=== PATIENT | female | born 1930 | race Caucasian/White ===

== ENCOUNTER 2016-07-15 21:02 | Inpatient (IN) ==
[2016-07-15] MEDS ORDERED: Ondansetron 4 MG/2 ML VIAL IVP ONE (21:15)
[2016-07-15] MEDS ORDERED: 0.9 % Sodium Chloride 1,000 ML IVC ONE (21:15)
[2016-07-15] MEDS ORDERED: *HR* HYDROmorphone 2 MG/ML SYRINGE IV ONE (21:19)
--- NOTE | 2016-07-15 21:22 | Emergency Department Note ---
Disposition Clinical Impression: Closed right femoral fracture Qualifiers: Encounter type: initial encounter Femur location: shaft Fracture morphology: comminuted Fracture alignment: nondisplaced Qualified Code(s): S72.354A - Nondisplaced comminuted fracture of shaft of right femur, initial encounter for closed fracture Disposition: Admitted As Inpatient Condition: Serious Forms: ED Satisfaction Letter Fall HPI - General Chief Complaint: ED Fall Stated Complaint: fall Nursing Notes Reviewed: Yes Vital Signs Reviewed: Yes - History of Present Illness HPI Narrative: Patient's 86-year-old female who complains of fall times now and half ago. Patient is not on anticoagulants. Patient has history of bilateral hip replacement 10 years ago, C2 fracture 2 years ago, bilateral knee replacements. Patient history of dementia. Family says the patient tried to sit down in a chair and missed average and fell onto her right hip. Patient was lifted and place to chair I family member. EMS was called and they brought patient in the emergency department. - Related Data Home Medications Medication Instructions Recorded Confirmed Aspirin [Adult Low Dose Aspirin EC] 81 mg PO DAILY 08/12/15 08/12/15 Cholecalciferol (Vitamin D3) 4,000 unit PO DAILY 08/12/15 08/12/15 [Vitamin D] Donepezil [Aricept] 10 mg PO HS 08/12/15 08/12/15 LevETIRAcetam [Keppra] 500 mg PO BID 08/12/15 08/12/15 Lisinopril [Zestril] 20 mg PO DAILY 08/12/15 08/12/15 Memantine [Namenda] 10 mg PO BID 08/12/15 08/12/15 Metoprolol [Lopressor] 25 mg PO BID 08/12/15 08/12/15 Simvastatin [Zocor] 20 mg PO DAILY 08/12/15 08/12/15 Venlafaxine [Effexor] 75 mg PO BID 08/12/15 08/12/15 Allergies Allergy/AdvReac Type Severity Reaction Status Date / Time piroxicam [From Feldene] AdvReac Rash Verified 08/12/15 11:17 povidone-iodine AdvReac Rash Verified 08/12/15 10:49 [From Betadine] soap [From Betadine] AdvReac Rash Verified 08/12/15 10:49 Limitations: ROS unobtainable due to patients medical condition Fall PMH - Past Medical History Medical history: Reports: dementia Psychiatric history: Reports: no psych history - Social History Smoking Status: Never smoker Alcohol use: Reports: none Drug use: Reports: none Physical Exam -General Appearance: Patient is a 86-year-old female who does not answer questions but she nods her head yes to where she is having pain. - Head Head exam: atraumatic, normocephalic, normal inspection - Eye Eye exam: Present: normal appearance, PERRL, EOMI, negative for scleral icterus negative for conjunctival pallor - ENT ENT exam: normal exam, normal oropharynx, mucous membranes moist - Neck Neck exam: Present: normal inspection, full ROM, trachea midline, negative JVD - Chest Chest inspection: Present: Patient has bilateral equal rise and fall of chest wall. Non-tender to palpation. - Respiratory Respiratory exam: Clear to auscultation bilaterally without wheezes rales or rhonchi Cardiovascular Cardiovascular exam: Present: regular rate, normal rhythm, normal heart sounds, without murmurs rubs or gallops. - Abdominal Exam Abdominal exam: Present: soft, nondistended, Non-Tender light and deep palpation in all quadrants. Bowel sounds normoactive throughout all 4 quadrants. Negative for hyper or hyperresonance. - Extremities Exam Extremities exam: Right lower extremity bent at the knee and externally rotated. Patient has grimacing to palpation at the lateral right hip. Distal pulses equal and bilateral. - Back Exam Back exam: Currently unable to assess secondary to patient's condition Psychiatric Psychiatric exam: Present: normal affect, normal mood - Skin Skin exam: Present: warm, dry, intact, normal color Course Course Narrative: Pt was seen and examined. Preop workup ordered for suspected hip fracture on the right lower extremity. IV normal saline and 1 mg Dilaudid ordered - Reevaluation(s) Reevaluation #1: Patient's back from x-ray. - Consultations Consultation #1: Dr. Barajas was consult at 2207 hrs. He states to admit patient to medicine and he will see patient in the morning. Time: 22:07 Consultation #2: Dr. Siu has accepted for admission Time: 22:25 Fall - [facility] Narrative Medical decision making narrative: Mrs. Donna Campbell is an 86-year-old female who suffered a ground-level mechanical fall otitis it back into a chair. Patient has history of bilateral replacements by Dr. Barajas. Patient has bilateral knee replacements as well. He has history of A. fib but is not on anticoagulants therapy secondary to fall risk. Patient has a history of dementia as well. X-ray of hip shows closed fracture mid shaft femur short neck comminuted. Dr. Gonzalez was consult and requests patient be admitted to the hospital to medicine. He states he was see patient in morning. Patient's family has been updated progress and accepts treatment and plan. Dr. Siu has accepted for admission - Radiology Data Radiology results reviewed: Yes I reviewed the patient's radiology results.
--- NOTE | 2016-07-15 21:30 | Emergency Department Note ---
START Narrative - START START: I examined this patient and my medical decision-making was reviewed with the HEEL BUILDER/PA/Advanced Practice Nurse/Resident Physician. I agree with the documented findings, disposition and treatment plan as described except to the extent set forth below. ED attending note: Patient seen with emergency medicine resident Dr. Piedra. We independently evaluated the patient. We independently had [id number] contact with the patient. Please see a copy of his note for details of the history and physical, evaluation, management and disposition of this emergency Department patient. Briefly: A 86-year-old history of A. fib but not on blood thinners due to frequent falls spell while getting into a chair at home her family helped her onto the bed. There was no loss of consciousness no open wounds. Neurologically at baseline. Labs and imaging are pending. Disposition pending. Patient stable.
[2016-07-15 22:39] LABS: Basophils % 0.2 %; Eosinophils % 0.3 %; Hematocrit 39.9 % (35.3-44.9); Hemoglobin 13.3 g/dL (11.5-15.4); Immature Granulocytes % 0.5 % (0-4); Lymphocytes % 8.3 %; Mean Corpuscular HGB Conc 33.3 g/dL (31.6-35.5); Mean Corpuscular Volume 87.1 fL (83.0-100.0); Mean Platelet Volume 9.6 fL (9.4-12.4); Monocytes # 0.3 K/mcL (0.0-1.3); Monocytes % 2.2 %; Neutrophils # 10.6 K/mcL (1.6-8.9); Platelet Count 295 K/mcL (140-400); Red Blood Count 4.58 M/mcL (3.82-4.97); Red Cell Distribution Width 13.6 % (11.5-14.5); Segmented Neutrophils % 88.5 %
[2016-07-15 22:51] LABS: BUN/Creatinine Ratio 21 (6-26); Blood Urea Nitrogen 19 mg/dL (7-20); Calcium 9.9 mg/dL (8.6-10.8); Carbon Dioxide 19 mEq/L (19-29); Chloride 108 mEq/L (98-109); Glucose 199 mg/dL (70-99); Osmolality,Calculated 296 (280-300); Potassium 4.1 mEq/L (3.5-4.5); Sodium 139 mEq/L (136-145); eGFR For African Americans > 60 (> 60); eGFR For Non-African Americans 59 (> 60)
[2016-07-15] MEDS ORDERED: Ondansetron 4 MG/2 ML VIAL IVP PRN (23:45)
[2016-07-15] MEDS ORDERED: 0.9 % Sodium Chloride 1,000 ML IVC SCH (23:45)
[2016-07-15] MEDS ORDERED: *HR* HYDROcodone/Acet 5/325 mg TABLET PO PRN (23:45)
[2016-07-15] MEDS ORDERED: Naloxone 0.4 MG/ML INJ IVP PRN (23:45)
--- NOTE | 2016-07-16 00:02 | Internal Med History&Physical ---
<Lisset Baca M - Last Filed: 07/15/16 23:56> Date of Encounter: 07/15/16 Time of Encounter: 23:56 Assessment and Plan (1) Closed right femoral fracture Current visit: Yes Status: Acute Patient fell at home. XRay revealed right communuted, impacted and shortened mid shaft femur fracture below hardware of hip replacement. Right leg is internally rotated and right thigh is significantly swollen IV dilaudid for pain control Narcan ordered PRN for respiratory depression Neurovascular checks Q2hrs to monitor for compartment syndrome Pre-op testing: CXR showed no acute abnormality. EKG with no changes from previous. Echocardiogram ordered for the morning. NPO after midnight for possible surgery. type and cross ordered. Qualifiers: Encounter type: initial encounter Femur location: shaft Fracture morphology: comminuted Fracture alignment: nondisplaced Qualified Code(s): S72.354A - Nondisplaced comminuted fracture of shaft of right femur, initial encounter for closed fracture (2) Hypertension Current visit: Yes Status: Acute Continue home doses of metoprolol and lisinopril. Will get pain under control, and reassess blood pressure and need for PRN. Qualifiers: Hypertension type: essential hypertension Qualified Code(s): I10 - Essential (primary) hypertension (3) Dementia Current visit: Yes Status: Acute Continue home doses of Memantine and aricept. Qualifiers: Dementia type: unspecified type Dementia behavioral disturbance: without behavioral disturbance Qualified Code(s): F03.90 - Unspecified dementia without behavioral disturbance (4) Seizure disorder Current visit: Yes Status: Acute Continue home dose of Keppra. (5) Atrial fibrillation Current visit: Yes Status: Acute Patient rate controlled with metoprolol. On asprin 325mg daily, but no anti- coagulation due to fall risk. Continue metoprolol. Qualifiers: Atrial fibrillation type: paroxysmal Qualified Code(s): I48.0 - Paroxysmal atrial fibrillation (6) History of DE (myocardial infarction) Current visit: Yes Status: Acute EKG with no changes. Will get echocardiogram in the morning for pre-op clearance. (7) DVT prophylaxis Current visit: Yes Status: Acute anit-embolic stockings. hold heparin tonight due to significant swelling in right thigh. start heparin 5,000u SQ BID after surgery. Internal Medicine - H&P: HPI Chief complaint: fall Admitted From: Emergency Dept Plans for Post Hospital Care: Transfer [facility] Facility History of present illness: Ms. Campbell is a 86 year old female with dementia, seizure disorder, Hypertension, hyperlipidemia, CVA, DE, Afib who was brought to the ED today after a fall at home. She has significant dementia and all information was gathered from family. Patient reportedly was going to sit down and missed the chair. The fall was witnessed and she did not hit her head. She is unable to provide a review of symptoms due to her baseline mental status. Xray obtained in the ED revealed a right comminuted, impacted and shortened mid shaft femur fracture below the level of the hip replacement hardware. CXR showed no acute abnormality. EKG showed no significant changes from previous. On exam, the patient is awake, and oriented x 0, which is her baseline per the family. Her right leg is internally rotated and the right thigh is significantly swollen. Heart has irregular rhythm, lungs are clear bilaterally. Past Med Surg Social Fam HX - Past Medical History Source: obtained from family Medical history: atrial fibrillation, CVA, dementia, hyperlipidemia, hypertension, myocardial infarction, seizures Psychiatric history: no psych history - Past Surgical History Surgical History: herniorrhaphy, hip replacement (bilateral), knee replacement ( bilateral) - Social History Smoking Status: Never smoker Smokeless Tobacco Status: No Alcohol use: none Drug use: none - Family History Mother Hx Family Neuromuscular Disorders: Yes (CVA) Internal Medicine - H&P: Meds Aspirin [Adult Low Dose Aspirin EC] 325 mg PO DAILY 08/12/15 [History] Cholecalciferol (Vitamin D3) [Vitamin D] 4,000 unit PO DAILY 08/12/15 [History] Donepezil [Aricept] 10 mg PO HS 08/12/15 [History] LevETIRAcetam [Keppra] 500 mg PO BID 08/12/15 [History] Lisinopril [Zestril] 20 mg PO DAILY 08/12/15 [History] Memantine [Namenda] 10 mg PO BID 08/12/15 [History] Metoprolol [Lopressor] 50 mg PO BID 08/12/15 [History] Simvastatin [Zocor] 20 mg PO DAILY 08/12/15 [History] Venlafaxine [Effexor] 75 mg PO DAILY 08/12/15 [History] Allergies piroxicam [From Feldene] Adverse Reaction (Verified 08/12/15 11:17) Rash povidone-iodine [From Betadine] Adverse Reaction (Verified 08/12/15 10:49) Rash soap [From Betadine] Adverse Reaction (Verified 08/12/15 10:49) Rash ROS unobtainable: due to mental status All Systems PM: A 10-system review of systems was performed and is negative for pertinent findings except as documented above in the HPI. - Constitutional Vitals: Temp Pulse Resp BP Pulse Ox 97.5 F L 62 14 173/115 96 07/15/16 22:49 07/15/16 21:22 07/15/16 22:49 07/15/16 22:49 07/15/16 21:22 General appearance: Present: A&O X 0, no acute distress - Head Head exam: Present: atraumatic, normocephalic - Eye Eye exam: Present: PERRL, conjuntiva pink, sclera anicteric Pupils: Present: PERRL - Neck Neck exam general surgery: Present: supple, trachea midline. Absent: lymphadenopathy - Respiratory Respiratory exam: Present: CTAB. Absent: accessory muscle use, rales, rhonchi, wheezes - Cardiovascular Cardiovascular exam: Present: irregular rhythm, +S1, +S2. Absent: diastolic murmur, gallop, rubs, systolic murmur - GI/Abdominal GI/Abdominal exam: Present: normal bowel sounds, soft, no peritoneal signs. Absent: distended, tenderness - Extremities Exam Extremities exam: Present: warm, radial pulses palpable and symetrical. Absent : calf tenderness, cyanotic, pedal edema Additional comments: Right leg internally rotated and thigh is significantly swollen - Neurological Exam Neurological exam: Present: alert, speech deficit - Expanded Neurological Exam Neurological exam expanded: Present: total aphasia Cranial Nerves: EOM's intact PM: Normal Coma Scale Eye Opening: Spontaneous - Skin Skin exam: Present: dry, intact Internal Med - H&P Results - Labs CBC & Chem 7: 07/15/16 22:16 07/15/16 22:16 Labs: All Lab Results (24 Hours) 07/15/16 07/15/16 07/15/16 Range/Units 21:05 22:16 22:16 WBC 11.9 H (4.3-11.1) K/mcL RBC 4.58 (3.82-4.97) M/mcL Hgb 13.3 (11.5-15.4) g/dL Hct 39.9 (35.3-44.9) % MCV 87.1 (83.0-100.0) fL MCH 29.0 (28.0-33.3) pg MCHC 33.3 (31.6-35.5) g/dL RDW 13.6 (11.5-14.5) % Plt Count 295 (140-400) K/mcL MPV 9.6 (9.4-12.4) fL Immature Gran % 0.5 (0-4) % Seg Neutrophils % 88.5 % Lymphocytes % 8.3 % Monocytes % 2.2 % Eosinophils % 0.3 % Basophils % 0.2 % Neutrophils # 10.6 H (1.6-8.9) K/mcL Lymphocytes # 1.0 (0.6-4.6) K/mcL Monocytes # 0.3 (0.0-1.3) K/mcL Eosinophils # 0.0 (0.0-0.6) K/mcL Basophils # 0.0 (0.0-0.2) K/mcL Sodium 139 (136-145) mEq/L Potassium 4.1 (3.5-4.5) mEq/L Chloride 108 (98-109) mEq/L Carbon Dioxide 19 (19-29) mEq/L BUN 19 (7-20) mg/dL Creatinine 0.90 (0.57-1.11) mg/dL Est GFR ( Amer) > 60 (> 60) Est GFR (Non-Af Amer) 59 L (> 60) BUN/Creatinine Ratio 21 (6-26) Glucose 199 H (70-99) mg/dL POC Glucose 162 H (58-89) Calculated Osmolality 296 (280-300) Calcium 9.9 (8.6-10.8) mg/dL <Daren Siu - Last Filed: 07/16/16 04:43> Date of Encounter: 07/15/16 Internal Medicine - H&P: HPI History of present illness: Ms. Campbell is a 86 year old female All Systems PM: A 10-system review of systems was performed and is negative for pertinent findings except as documented above in the HPI. - Constitutional Vitals: Temp Pulse Resp BP Pulse Ox 97.1 F L 61 16 143/82 97 07/16/16 03:53 07/16/16 03:53 07/16/16 03:53 07/16/16 03:53 07/16/16 03:53 Internal Med - H&P Results - Labs CBC & Chem 7: 07/16/16 01:21 07/16/16 01:21 Labs: Short CBC 07/16/16 Range/Units 01:21 WBC 12.9 H (4.3-11.1) K/mcL Hgb 11.9 (11.5-15.4) g/dL Hct 35.9 (35.3-44.9) % Plt Count 300 (140-400) K/mcL Neutrophils # 11.5 H (1.6-8.9) K/mcL BMP 07/16/16 01:21 Sodium 140 Potassium 4.2 Chloride 110 H Carbon Dioxide 17 L BUN 19 Creatinine 0.80 Glucose 184 H Calcium 9.3 Urine 07/16/16 Range/Units 01:00 Urine Color Yellow (Yellow) Urine Clarity Clear (Clear) Urine pH 5.5 (5.0-8.0) pH Units Ur Specific [place] >= 1.030 H (1.010-1.025) Urine Protein 30 H (Neg-Trace) mg/dL Urine Glucose (UA) Normal (Normal) mg/dL - Attending Attestation I examined this patient and my medical decision-making was reviewed with the SERVICE SPECIALIST/PA/Advanced Practice Nurse/Resident Physician. I agree with the documented findings, disposition and treatment plan as described except to the extent set forth below. I have personally evaluated the pt and discussed the details with [employer] CRAFTSMAN. 86 Y/F with dementia not able to answer questions. She had a fall and sustained a comminuted, displaced and angulated fracture of the mid to distal right femur, extending from the distal aspect of the intramedullary nail into the femoral component of the knee arthroplasty. ER Physician contacted Dr Archibald, ( orthopedics), who will evaluate the pt. O/E: Pt is non verbal, due to dementia. Not in Acute distress at the time of my evaluation. There is significant swelling at the right thigh, with limb shortening. I could not feel dorsalis pedis pulses on the right side. Pulses present by Doppler. A/P: Right femur fracture: Orthopedic consultation for ORIF. At risk of compartment syndrome. Monitor pulse / neurovascular monitoring. Type and screen . Echo.
[2016-07-16] MEDS: *HR* HYDROmorphone (PF) 1 MG/ML SYRINGE IVP PRN ×2 (00:35→06:56)
[2016-07-16] MEDS: levETIRAcetam 250 MG TABLET PO SCH ×3 (00:42→21:04)
[2016-07-16 01:34] LABS: Basophils % 0.1 %; Hematocrit 35.9 % (35.3-44.9); Hemoglobin 11.9 g/dL (11.5-15.4); Immature Granulocytes % 0.4 % (0-4); Immature Platelets 1.8 % (1.1-6.1); Lymphocytes # 0.9 K/mcL (0.6-4.6); Mean Corpuscular HGB Conc 33.1 g/dL (31.6-35.5); Mean Corpuscular Hemoglobin 29.1 pg (28.0-33.3); Mean Corpuscular Volume 87.8 fL (83.0-100.0); Mean Platelet Volume 9.4 fL (9.4-12.4); Monocytes # 0.4 K/mcL (0.0-1.3); Monocytes % 3.3 %; Neutrophils # 11.5 K/mcL (1.6-8.9); Platelet Count 300 K/mcL (140-400); Red Blood Count 4.09 M/mcL (3.82-4.97); Red Cell Distribution Width 13.7 % (11.5-14.5); Segmented Neutrophils % 89.2 %
[2016-07-16 01:35] LABS: Bilirubin,Urine Negative (Negative); Blood,Urine Small (Negative); Clarity,Urine Clear (Clear); Color,Urine Yellow (Yellow); Glucose,Urine (UA) Normal (Normal); Ketones,Urine Negative (Negative); Leukocyte Esterase,Urine Trace (Negative); Nitrite,Urine Positive (Negative); PH,Urine 5.5 pH Units (5.0-8.0); Protein,Urine 30 mg/dL (Neg-Trace); Specific Gravity,Urine >= 1.030 (1.010-1.025); Urobilinogen,Urine Normal (Normal)
[2016-07-16 01:38] LABS: Bacteria,Urine Many per hpf (None-Few); Hyaline Casts,Urine None Seen per lpf (None-Few); Squamous Epithelial Cell,Urine Many per lpf (None-Few); WBC,Urine 15-30 per hpf (0-3)
[2016-07-16 01:50] LABS: BUN/Creatinine Ratio 24 (6-26); Blood Urea Nitrogen 19 mg/dL (7-20); Calcium 9.3 mg/dL (8.6-10.8); Carbon Dioxide 17 mEq/L (19-29); Chloride 110 mEq/L (98-109); Glucose 184 mg/dL (70-99); Osmolality,Calculated 297 (280-300); Potassium 4.2 mEq/L (3.5-4.5); Sodium 140 mEq/L (136-145); eGFR For African Americans > 60 (> 60); eGFR For Non-African Americans > 60 (> 60)
[2016-07-16] MEDS ORDERED: *HR* Heparin 5,000 UNIT/ML VIAL SQ SCH (07:00)
[2016-07-16] MEDS ORDERED: Dextrose Gel 15 GM PO PRN ×2 (07:59)
[2016-07-16] MEDS ORDERED: *HR* Dextrose 50 % in Water (Syg) 50 ML SYRINGE IVP PRN (07:59)
[2016-07-16] MEDS ORDERED: D5% in Water 1,000 ML IV PRN (07:59)
[2016-07-16] MEDS ORDERED: Lisinopril 20 MG TABLET PO SCH (09:00)
[2016-07-16] MEDS: Insulin LISPRO 300 UNITS/3 ML VIAL SQ SCH ×2 (12:19→17:15)
[2016-07-16] MEDS: Venlafaxine XR (24 HR) 75 MG CAP.ER.24H PO SCH (13:03)
[2016-07-16] MEDS: Cholecalciferol (D-3) 1,000 UNIT TABLET PO SCH (13:03)
[2016-07-16] MEDS: Aspirin Enteric Coated 325 MG Tablet PO SCH (13:03)
--- NOTE | 2016-07-16 13:06 | Orthopedic Consult Note ---
Date of Encounter: 07/16/16 Time of Encounter: 12:54 History of Present Illness Chief complaint: Right leg pain HPI: Ms. Campbell is a 86 year old female known to me from previous fixation of a intertrochanteric fracture of her right hip. Patient also previously has undergone a hemiarthroplasty of her left hip as well as previous bilateral total knee replacements. Patient apparently sustained an injury to her right leg in a witnessed fall at home. Patient has significant dementia and is unable to give any history. History is obtained from family. She was brought to the emergency room x-rays taken revealed a complex fracture of her right femur. She is admitted for definitive management. For complete History and physical data please refer to the completed portion of the medical record. Examination reveals a pleasant elderly white female in mild distress. Examination of right lower extremity reveals it to be externally rotated and shortened with thickening of the thigh consistent with muscle pull and shortening. X-rays reveal a complex fracture of the right femur. There is a short trochanteric femoral nail in the proximal femur. Distally there is a 3 component total knee arthroplasty. Just below the level of the nail is a complex comminuted fracture. There is extension distally to a point just above the prosthesis. Impression: Complex comminuted displaced periprosthetic fracture right femur Recommendation: I discussed the complexity of the fracture with the family. We discussed the potential treatment options including nonoperative management, possibly revising from a short nail to a long nail though this would be quite difficult. The other option would be proceeding with open reduction internal fixation utilizing a combination type plate with proximal cables and distal screws. I also discussed recommend that we place a implanted bone stimulator and possibly place bone graft matrix depending upon findings. We discussed potential risks and complications of the surgery included but not limited to bleeding infection blood clots nerve injury stiffness malunion nonunion and leg length or rotational deformities. We also discussed that this is a long process for this fracture to heal and she would not be weightbearing for a significant period of time. Patient's family understands and agree. The who has power of patent prosecution attorney has signed informed consent for the surgery. We will proceed with surgery tomorrow. In the meantime patient has just had a echocardiogram completed. Also awaiting a urine culture result as a suspect the patient has a urinary tract infection. Thank you very much for allowing me to see care for Mrs. Campbell. Sincerely, Fady Barajas,DO Past Med Surg Social Fam HX - Past Medical History Medical history: atrial fibrillation, CVA, dementia, hyperlipidemia, hypertension, myocardial infarction, seizures Psychiatric history: no psych history - Past Surgical History Surgical History: herniorrhaphy, hip replacement (bilateral), knee replacement ( bilateral) - Social History Smoking Status: Never smoker Smokeless Tobacco Status: No Alcohol use: none Drug use: none - Family History Mother Hx Family Neuromuscular Disorders: Yes (CVA) Medications and Allergies Aspirin [Adult Low Dose Aspirin EC] 325 mg PO DAILY 08/12/15 [History] Cholecalciferol (Vitamin D3) [Vitamin D] 4,000 unit PO DAILY 08/12/15 [History] Donepezil [Aricept] 10 mg PO HS 08/12/15 [History] LevETIRAcetam [Keppra] 500 mg PO BID 08/12/15 [History] Lisinopril [Zestril] 20 mg PO DAILY 08/12/15 [History] Memantine [Namenda] 10 mg PO BID 08/12/15 [History] Metoprolol [Lopressor] 50 mg PO BID 08/12/15 [History] Simvastatin [Zocor] 20 mg PO DAILY 08/12/15 [History] Venlafaxine [Effexor] 75 mg PO DAILY 08/12/15 [History] Allergies piroxicam [From Feldene] Adverse Reaction (Verified 08/12/15 11:17) Rash povidone-iodine [From Betadine] Adverse Reaction (Verified 08/12/15 10:49) Rash soap [From Betadine] Adverse Reaction (Verified 08/12/15 10:49) Rash All Systems Reviewed: A 10-system review of systems was performed and is negative for pertinent findings except as documented above in the HPI. Physical Exam - Constitutional Vitals: Temp Pulse Resp BP Pulse Ox 97.8 F 76 18 144/78 97 07/16/16 11:44 07/16/16 11:44 07/16/16 11:44 07/16/16 11:44 07/16/16 11:44 Results - Labs Result Diagrams: 07/16/16 01:21 07/16/16 01:21 Labs: Abnormal lab results WBC 12.9 K/mcL (4.3-11.1) H 07/16/16 01:21 Neutrophils # 11.5 K/mcL (1.6-8.9) H 07/16/16 01:21 Chloride 110 mEq/L (98-109) H 07/16/16 01:21 Carbon Dioxide 17 mEq/L (19-29) L 07/16/16 01:21 Glucose 184 mg/dL (70-99) H 07/16/16 01:21 POC Glucose 166 (58-89) H 07/16/16 01:56 Ur Specific [place] >= 1.030 (1.010-1.025) H 07/16/16 01:00 Urine Protein 30 mg/dL (Neg-Trace) H 07/16/16 01:00 Urine Blood Small (Negative) H 07/16/16 01:00 Urine Nitrite Positive (Negative) A 07/16/16 01:00 Ur Leukocyte Esterase Trace (Negative) H 07/16/16 01:00 Urine Microscopic RBC 5-15 per hpf (0-3) H 07/16/16 01:00 Urine Microscopic WBC 15-30 per hpf (0-3) H 07/16/16 01:00 Ur Squamous Epith Cells Many per lpf (None-Few) H 07/16/16 01:00 Urine Bacteria Many per hpf (None-Few) H 07/16/16 01:00 H & H 07/16/16 Range/Units 01:21 Hgb 11.9 (11.5-15.4) g/dL Hct 35.9 (35.3-44.9) % All other labs normal. Consult Discharge Plan - Plan Referrals: NO,PCP [Non-Partnered Physician] -
--- NOTE | 2016-07-16 15:29 | ECHO - Doppler Report ---
Echocardiogram Name: Donna Campbell Date of Study: 07/16/2016 Date: 1930 Ht: 62.0 in Medical Record#: [id number] Age: 86 Wt: 123.0 lb Gender: Female BSA: 1.55 Order #: [id number] Location: [facility] Room #: [employer] [facility] [employer] [facility] Reading Physician: Dawit Wolf MD, [facility] Oracle Fusion Developer: HARLEY GutiérrezT, [facility] Ordering Physician: Lisset Baca CNP Primary Physician: Itzel Street MD Indications: Preop Impressions: Technically sub-optimal study. Patient supine for exam. Limited echo windows. Normal left ventricular size and systolic function, LVEF 65%. Mild left ventricular diastolic dysfunction. Normal right ventricular size and function. Mildly dilated left atrium. No significant valvular dysfunction. Mild pulmonary hypertension. Estimated RVSP = 38 mmHg. Left Ventricular Wall Motion: Rest Echo Findings All wall segments showed normal motion. Findings: Study Quality * Technically sub-optimal study. Patient supine for exam. Limited echo windows. ECG Findings * Normal sinus rhythm. Left Ventricle * Normal left ventricular size and systolic function, LVEF 65%. * Normal LV wall thickness. * Mild left ventricular diastolic dysfunction. Right Ventricle * Normal right ventricular size and function. Left Atrium * Mildly dilated left atrium. Right Atrium * Normal right atrial size. Aorta * Normally sized aortic root. Pericardium * There is no pericardial effusion present. IVC * The IVC is not well evaluated. Aortic Valve * Aortic valve not well visualized. * No aortic stenosis. * Trace aortic regurgitation. Mitral Valve * Mild mitral annular calcification * No mitral stenosis. * Trace mitral regurgitation. Tricuspid Valve * Normal tricuspid valve structure. * No tricuspid stenosis. * Trace tricuspid regurgitation. * Mild pulmonary hypertension. Estimated RVSP = 38 mmHg. Pulmonic Valve * Pulmonic valve not visualized. * No pulmonic stenosis. * No pulmonic regurgitation. History Hypertension History of CAD/PTCA Myocardial Infarction Congestive Heart Failure 03/29/2014 a Previous Echo was performed. Measurements: BP: 138/ 84 2D Normal Values RVIDd: 2.00 cm IVSd: .80 cm 0.6 - 1.0 cm LVIDd: 3.30 cm 3.7 - 5.6 cm LVPWd: .70 cm 0.6 - 1.1 cm LVIDs: 2.30 cm 1.5 - 3.6 cm AO: 3.10 cm < 4.0 cm %FS: 30.30 cm >25 % LA volume: 55 Mitral Valve Peak E:.74 m/sec Peak A:.90 m/sec E/A Ratio:0.8 Tricuspid Valve TV Regurg Peak Grad: 33.00mmHg TV Regurg Peak Manohar: 2.89m/sec Updated by Dawit Wolf MD, [facility] on 07/16/2016 3:23:40 PM electronically signed on 07/16/2016 3:24:37 PM with status of Final Wall Motion Stevens: 1=Normal, 2=Hypokinesis, 3=Akinesis, 4=Dyskinesis, 5=Aneurysmal, 6=Hyperkinetic, X=Not Visualized (Blank)=Missing
--- NOTE | 2016-07-16 16:34 | Internal Med Progress Note ---
Date of Encounter: 07/16/16 Time of Encounter: 13:45 - Assessment and plan (1) Fall Current Visit: Yes Status: Acute Assessment and plan: Mechanical fall. Patient was going to sit down and missed the chair. Qualifiers: Encounter type: initial encounter Qualified Code(s): W19.XXXA - Unspecified fall, initial encounter (2) Closed right femoral fracture Current Visit: Yes Status: Acute Assessment and plan: X-ray of the right hip showed right comminuted, impacted and shortened midshaft femur fracture below hardware of hip replacement. Orthopedic service is following, plan for surgical intervention tomorrow. Continue pain control with opiates and bed rest. Qualifiers: Encounter type: initial encounter Femur location: shaft Fracture morphology: comminuted Fracture alignment: nondisplaced Qualified Code(s): S72.354A - Nondisplaced comminuted fracture of shaft of right femur, initial encounter for closed fracture (3) CAD (coronary artery disease) Current Visit: Yes Status: Acute Assessment and plan: Patient was history of [place]. EKG showed no changes. Echocardiogram was suboptimal, LVEF 65%, mild diastolic dysfunction. No symptoms. Continue aspirin, metoprolol and statin. Qualifiers: Coronary Disease-Associated Artery/Lesion type: [place] artery [place] vs. transplanted heart: [place] heart Associated angina: without angina Qualified Code(s): I25.10 - Atherosclerotic heart disease of [place] coronary artery without angina pectoris (4) Atrial fibrillation Current Visit: Yes Status: Acute Assessment and plan: Heart rate is controlled. Continue metoprolol. Not on anticoagulation due to fall risk Qualifiers: Atrial fibrillation type: paroxysmal Qualified Code(s): I48.0 - Paroxysmal atrial fibrillation (5) Hypertension Current Visit: Yes Status: Acute Assessment and plan: Controlled. Holding home dose lisinopril. Qualifiers: Hypertension type: essential hypertension Qualified Code(s): I10 - Essential (primary) hypertension (6) Dementia Current Visit: Yes Status: Acute Assessment and plan: Patient with advanced dementia. Qualifiers: Dementia type: unspecified type Dementia behavioral disturbance: without behavioral disturbance Qualified Code(s): F03.90 - Unspecified dementia without behavioral disturbance (7) Seizure disorder Current Visit: Yes Status: Acute Assessment and plan: Seizure precautions. Fall precautions. Continue home dose of Keppra. (8) Hyperglycemia Current Visit: Yes Status: Acute Assessment and plan: No history of diabetes. Could be secondary to acute inflammation from hip fracture. Start insulin sliding scale. - Subjective Interval history: Patient has advanced dementia. Her daughter is at bedside and reports the patient is unable to maintain a conversation or answer questions. - Constitutional Vitals: Temp Pulse Resp BP Pulse Ox 97.8 F 76 18 144/78 97 07/16/16 11:44 07/16/16 11:44 07/16/16 11:44 07/16/16 11:44 07/16/16 11:44 General appearance: Present: A&O X 0, pleasant, no acute distress - Eye Eye exam: Present: PERRL, sclera anicteric - Neck Neck exam general surgery: Present: supple, trachea midline. Absent: lymphadenopathy - Respiratory Respiratory exam: Present: CTAB - Cardiovascular Cardiovascular exam: Present: RRR - GI/Abdominal GI/Abdominal exam: Present: normal bowel sounds, soft. Absent: distended, tenderness - Extremities Exam Extremities exam: Absent: pedal edema - Back Exam Back exam: Absent: CVA tenderness (L), CVA tenderness (R) - Neurological Exam Neurological exam: Present: alert, oriented X3, no focal deficits. Absent: facial droop, speech deficit - Skin Skin exam: Absent: rash Internal Medicine: Result - Labs CBC & Chem 7: 07/16/16 01:21 07/16/16 01:21 Labs: Short CBC 07/16/16 Range/Units 01:21 WBC 12.9 H (4.3-11.1) K/mcL Hgb 11.9 (11.5-15.4) g/dL Hct 35.9 (35.3-44.9) % Plt Count 300 (140-400) K/mcL Neutrophils # 11.5 H (1.6-8.9) K/mcL BMP 07/16/16 01:21 Sodium 140 Potassium 4.2 Chloride 110 H Carbon Dioxide 17 L BUN 19 Creatinine 0.80 Glucose 184 H Calcium 9.3 Urine 07/16/16 Range/Units 01:00 Urine Color Yellow (Yellow) Urine Clarity Clear (Clear) Urine pH 5.5 (5.0-8.0) pH Units Ur Specific Blue >= 1.030 H (1.010-1.025) Urine Protein 30 H (Neg-Trace) mg/dL Urine Glucose (UA) Normal (Normal) mg/dL Consult Discharge Plan - Plan Referrals: NO,PCP [Non-Partnered Physician] -
[2016-07-17] MEDS: Insulin LISPRO 300 UNITS/3 ML VIAL SQ SCH ×4 (00:20→18:39)
[2016-07-17 05:03] LABS: Basophils % 0.2 %; Eosinophils % 0.2 %; Immature Granulocytes % 0.6 % (0-4); Lymphocytes # 1.8 K/mcL (0.6-4.6); Lymphocytes % 19.6 %; Mean Corpuscular HGB Conc 33.4 g/dL (31.6-35.5); Mean Corpuscular Hemoglobin 29.4 pg (28.0-33.3); Mean Corpuscular Volume 87.9 fL (83.0-100.0); Mean Platelet Volume 9.5 fL (9.4-12.4); Monocytes # 0.8 K/mcL (0.0-1.3); Monocytes % 8.6 %; Neutrophils # 6.3 K/mcL (1.6-8.9); Platelet Count 232 K/mcL (140-400); Segmented Neutrophils % 70.8 %
[2016-07-17 05:07] LABS: Hemoglobin 9.7 g/dL (11.5-15.4)
[2016-07-17 05:19] LABS: BUN/Creatinine Ratio 24 (6-26); Blood Urea Nitrogen 22 mg/dL (7-20); Calcium 9.1 mg/dL (8.6-10.8); Carbon Dioxide 19 mEq/L (19-29); Chloride 109 mEq/L (98-109); Glucose 140 mg/dL (70-99); Magnesium 1.6 mg/dL (1.6-2.6); Osmolality,Calculated 292 (280-300); Potassium 4.4 mEq/L (3.5-4.5); Sodium 138 mEq/L (136-145); eGFR For African Americans > 60 (> 60); eGFR For Non-African Americans 58 (> 60)
[2016-07-17] MEDS: *HR* HYDROmorphone (PF) 1 MG/ML SYRINGE IVP PRN (06:01)
--- NOTE | 2016-07-17 06:25 | Electrocardiograph Report ---
[facility] Test Date: 2016-07-15 Pat Name: YUMI PENA Department: 103 Room: [facility] Gender: F Manager Of [employer]: [place] : 1930 Requested By: Trisha Santana Order Number: [id number] Reading MD: Dawit Wolf MD Measurements Intervals [place] Rate: 62 P: -35 AL: 152 QRS: 14 QRSD: 94 T: -12 QT: 443 QTc: 448 Interpretive Statements SINUS RHYTHM NONSPECIFIC ST \T\ T-WAVE ABNORMALITY Electronically Signed On 07-17-16 06:24:59 EST by Dawit Wolf MD
[2016-07-17] MEDS: Aspirin Enteric Coated 325 MG Tablet PO SCH (07:45)
[2016-07-17] MEDS: Venlafaxine XR (24 HR) 75 MG CAP.ER.24H PO SCH (07:46)
[2016-07-17] MEDS: Cholecalciferol (D-3) 1,000 UNIT TABLET PO SCH (07:46)
[2016-07-17] MEDS: levETIRAcetam 250 MG TABLET PO SCH (08:24)
[2016-07-17] MEDS ORDERED: Ringers Solution, Lactated 1,000 ML IVC SCH (10:30)
--- NOTE | 2016-07-17 15:29 | Internal Med Progress Note ---
Date of Encounter: 07/17/16 Time of Encounter: 15:15 - Assessment and plan (1) Fall Current Visit: Yes Status: Acute Assessment and plan: Mechanical fall. Patient was going to sit down and missed the chair. Qualifiers: Encounter type: initial encounter Qualified Code(s): W19.XXXA - Unspecified fall, initial encounter (2) Closed right femoral fracture Current Visit: Yes Status: Acute Assessment and plan: X-ray of the right hip showed right comminuted, impacted and shortened midshaft femur fracture below hardware of hip replacement. Orthopedic service is following, plan for surgical intervention today. Continue pain control with opiates and bed rest. Qualifiers: Encounter type: initial encounter Femur location: shaft Fracture morphology: comminuted Fracture alignment: nondisplaced Qualified Code(s): S72.354A - Nondisplaced comminuted fracture of shaft of right femur, initial encounter for closed fracture (3) CAD (coronary artery disease) Current Visit: Yes Status: Acute Assessment and plan: Patient was history of [place]. EKG showed no changes. Echocardiogram was suboptimal, LVEF 65%, mild diastolic dysfunction. No symptoms. Continue aspirin, metoprolol and statin. Qualifiers: Coronary Disease-Associated Artery/Lesion type: [place] artery [place] vs. transplanted heart: [place] heart Associated angina: without angina Qualified Code(s): I25.10 - Atherosclerotic heart disease of [place] coronary artery without angina pectoris (4) Atrial fibrillation Current Visit: Yes Status: Acute Assessment and plan: Heart rate is controlled. Continue metoprolol. Not on anticoagulation due to fall risk Qualifiers: Atrial fibrillation type: paroxysmal Qualified Code(s): I48.0 - Paroxysmal atrial fibrillation (5) Hypertension Current Visit: Yes Status: Acute Assessment and plan: Controlled. Holding home dose lisinopril. Qualifiers: Hypertension type: essential hypertension Qualified Code(s): I10 - Essential (primary) hypertension (6) Dementia Current Visit: Yes Status: Acute Assessment and plan: Patient with advanced dementia. Qualifiers: Dementia type: unspecified type Dementia behavioral disturbance: without behavioral disturbance Qualified Code(s): F03.90 - Unspecified dementia without behavioral disturbance (7) Seizure disorder Current Visit: Yes Status: Acute Assessment and plan: Seizure precautions. Fall precautions. Continue home dose of Keppra. (8) Hyperglycemia Current Visit: Yes Status: Acute Assessment and plan: No history of diabetes. Could be secondary to acute inflammation from hip fracture. Patient is on insulin sliding scale but has only required 2 units in the past 24 hours. Continue to monitor. - Subjective Interval history: Patient has advanced dementia. Her 2 daughters are at bedside and they have no complaints. - Constitutional Vitals: Temp Pulse Resp BP Pulse Ox 97.7 F 70 16 174/72 95 07/17/16 15:13 07/17/16 15:13 07/17/16 15:13 07/17/16 15:13 07/17/16 15:13 General appearance: Present: A&O X 0, pleasant, no acute distress - Eye Eye exam: Present: sclera anicteric - Neck Neck exam general surgery: Present: supple, trachea midline. Absent: lymphadenopathy - Respiratory Respiratory exam: Present: CTAB - Cardiovascular Cardiovascular exam: Present: RRR - GI/Abdominal GI/Abdominal exam: Present: normal bowel sounds, soft. Absent: distended, tenderness - Extremities Exam Extremities exam: Absent: pedal edema - Neurological Exam Neurological exam: Absent: facial droop, speech deficit - Skin Additional comments: Few small bruises in arms likely secondary to age. Internal Medicine: Result - Labs CBC & Chem 7: 07/17/16 04:38 07/17/16 04:38 Labs: Short CBC 07/17/16 Range/Units 04:38 WBC 8.9 (4.3-11.1) K/mcL Hgb 9.7 L D (11.5-15.4) g/dL Hct 29.0 L (35.3-44.9) % Plt Count 232 (140-400) K/mcL Neutrophils # 6.3 (1.6-8.9) K/mcL BMP 07/17/16 04:38 Sodium 138 Potassium 4.4 Chloride 109 Carbon Dioxide 19 BUN 22 H Creatinine 0.92 Glucose 140 H Calcium 9.1 - VTE Documentation of Mechanical Device: Graduated compression elastic hosiery Consult Discharge Plan - Plan Referrals: NO,PCP [Non-Partnered Physician] -
[2016-07-17] MEDS ORDERED: ceFAZolin 2,000 MG in D5% in Water 100 ML IVPB ONE (18:00)
--- NOTE | 2016-07-17 18:12 | Anesthesia Evaluation PreOp ---
Date of Encounter: 07/17/16 Time of Encounter: 18:10 - Past History Planned Operation: ORIF Right Femur Cardiac History: HTN, Arrhythmia (AFib), Other (CAD) Pulmonary History: Denies Any Significant HX RAYON TESTER History: Seizures, Other (Dementia) Other Medical History: Denies Any Significant HX : No Alcohol Use: none Drug use: none Medications and Allergies Aspirin [Adult Low Dose Aspirin EC] 325 mg PO DAILY 08/12/15 [History] Cholecalciferol (Vitamin D3) [Vitamin D] 4,000 unit PO DAILY 08/12/15 [History] Donepezil [Aricept] 10 mg PO HS 08/12/15 [History] LevETIRAcetam [Keppra] 500 mg PO BID 08/12/15 [History] Lisinopril [Zestril] 20 mg PO DAILY 08/12/15 [History] Memantine [Namenda] 10 mg PO BID 08/12/15 [History] Metoprolol [Lopressor] 50 mg PO BID 08/12/15 [History] Simvastatin [Zocor] 20 mg PO DAILY 08/12/15 [History] Venlafaxine [Effexor] 75 mg PO DAILY 08/12/15 [History] Allergies piroxicam [From Feldene] Adverse Reaction (Verified 08/12/15 11:17) Rash povidone-iodine [From Betadine] Adverse Reaction (Verified 08/12/15 10:49) Rash soap [From Betadine] Adverse Reaction (Verified 08/12/15 10:49) Rash - Meds/Allergy Pre-op Review Medications Reviewed: Yes Allergies Reviewed: Yes Beta Blockers on Current Med List: Yes If Beta Blockers taken, Date/Time (Last Dose taken): 07/17/2016 08:30 Anesthesia Results - Labs 07/17/16 04:38 07/17/16 04:38 Echo 07/16/2016 EF - 65% Mild LV dysfunction No valvular stenosis - Imaging EKG: image reviewed (SR, Nonspecific T-wave changes) Anesthesia Exam O2 Sat O2 Sat by Pulse Oximetry 95 O2 Sat by Pulse Oximetry 95 O2 Sat by Pulse Oximetry 98 O2 Sat by Pulse Oximetry 95 O2 Sat by Pulse Oximetry 94 O2 Sat by Pulse Oximetry 96 O2 Sat by Pulse Oximetry 95 O2 Sat by Pulse Oximetry 95 Vital Signs Temp Pulse Resp BP Pulse Ox 0 F L 62 18 199/125 96 07/15/16 21:22 07/15/16 21:22 07/15/16 21:22 07/15/16 21:22 07/15/16 21:22 Vital Signs/O2 Sat, Most Current Temp Pulse Resp BP Pulse Ox 99.4 F 55 20 179/79 95 07/17/16 15:55 07/17/16 15:55 07/17/16 15:55 07/17/16 15:55 07/17/16 15:30 Height: 5'2'' Weight: 123# NPO (# of Hours): > 8 hrs Pain Scale: 0 Pain Scale Used: Numeric (1 - 10)
[2016-07-17] MEDS ORDERED: *HR* Propofol 200 MG/20 ML VIAL IVP ONE (19:38)
[2016-07-17] MEDS ORDERED: Lidocaine -MPF 2% 2 ML VIAL ONE (19:38)
[2016-07-17] MEDS ORDERED: *HR* Etomidate 40 MG/20 ML VIAL IVP ONE (19:38)
[2016-07-17] MEDS ORDERED: *HR* FentaNYL (PF) 100 MCG/2 ML VIAL ONE (19:39)
[2016-07-17] MEDS ORDERED: Dexamethasone 4 MG/ML VIAL ONE ×2 (19:40→21:29)
[2016-07-17] MEDS ORDERED: Ondansetron 4 MG/2 ML VIAL ONE ×2 (19:40→21:29)
[2016-07-17] MEDS ORDERED: Acetaminophen IV 1,000 MG/100 ML INFUS..BTL ONE (19:45)
[2016-07-17] MEDS ORDERED: *HR* HYDROmorphone (PF) 1 MG/ML SYRINGE ONE (21:09)
[2016-07-17] MEDS ORDERED: *HR* Labetalol 20 MG/4 ML SYRINGE IVP PRN (21:13)
[2016-07-17] MEDS ORDERED: *HR* Promethazine 25 MG/ML VIAL IVP PRN (21:13)
[2016-07-17] MEDS ORDERED: *HR* HYDROmorphone (PF) 1 MG/ML SYRINGE IVP PRN (21:13)
[2016-07-17] MEDS ORDERED: *HR* Magnesium Sulfate 1 GM/2 ML VIAL ONE (21:26)
[2016-07-17] MEDS ORDERED: EPHEDrine 50 MG/ML VIAL ONE (23:38)
--- NOTE | 2016-07-18 00:37 | Operative Note ---
Date of procedure: 07/18/16 Pre-op diagnosis: Displaced comminuted periprosthetic fracture right femoral shaft Post-op diagnosis: same Procedure: #1. Open reduction internal fixation of periprosthetic fracture right femur #2. Removal metallic implant right femur #3. Insertion of an implanted bone stimulator #4. Fluoroscopic guidance for ORIF right femur Implants: Similar 12 hole right distal femoral periprosthetic NCB plate with multiple screws and cables and osteogen implanted bone stimulator Complications: None Anesthesia: GETA Surgeon: Fady Barajas Estimated blood loss (cc): 400 Specimen: None Condition: stable Disposition: PACU Procedure in Detail: Gross findings: Preoperative x-rays revealed a complex comminuted periprosthetic fracture of the right femur. The patient had a trochanteric femoral nail which remained intact. The patient also had a right total knee arthroplasty. Just below the trochanteric femoral nail the patient had a fracture extending down to the level of the distal femur approximating the femoral knee prosthesis. There was the previous distal locking screw in the trochanteric femoral nail was removed with some difficulty due to its elevating the plate off the femur proximally. There was noted to be extensive fracture comminution. Intraoperative findings were as anticipated with a marked comminuted fracture. The fracture was able to be reduced and then held in place with a combination of preliminary stainless steel cerclage wires followed by a combination cable and screw fixation plate. After excellent fracture reduction and fixation was obtained with the plate screw and cable construct, an implanted bone stimulator was placed along the anteromedial aspect of the comminution segment. Procedure: Patient was taken the operating room and administered a general anesthesia. Patient was then transferred to the [facility] fracture table. The right lower extremity was placed in longitudinal traction and left lower extremity was positioned out of harm's way and the well leg sy. Intraoperative fluoroscopy was used to guide the initial reduction which is obtained with longitudinal traction and some rotation. Markedly improved alignment was obtained. This is followed by prepping and draping in normal standard fashion for surgery. Incision was created from the the knee joint line and carried proximally along the lateral side of the femur. Dissection was carried to the subcutaneous tissues down the level of the fascia dane and the iliotibial band which were then split parallel to its fibers. Marked fracture hematoma was encountered as the vastus lateralis was elevated anteriorly. Fracture clot and hematoma was evacuated and the fracture was irrigated. At this time the fracture was manually reduced in a distal to proximal manner. Multiple stainless steel cerclage wires placed, temporarily stabilizing the fracture. At this time a 12 hole right distal femoral periprosthetic plate was measured and position. It gave excellent fit distally but proximally the screw in the trochanteric femoral nail elevated the plate and therefore the decision was made to proceed with removal of the distal locking screw. At this time the distal locking screw in the trochanteric femoral nail was identified. Some bony overgrowth was removed with a osteotome. The screw was attempted to be removed with the appropriate hex head screwdriver, unfortunately the head stripped and further attempts at removing the screw with the xm1 tank driver were abandoned. At this time the screw was exposed removing some of the cortical bone around the head. This was followed by removing the screw with a vice boat fueler. The selected plate was then placed against the femur and held in place temporarily with a bone-holding clamp. Multiplane fluoroscopy was used to verify that the fracture remained well reduced and the plate was in appropriate position. The plate was then temporarily fixed initially with several screws in the plate one just below the femoral nail and several distally. This was now followed by placing the unicortical screws in the region of the nail and then placing 21.8 mm cables about the femoral shaft in the region of the previous nail. Multivitamin plan fluoroscopy was again utilized to verify excellent position of the implants proximally. At this time distally multiple cancellus type screws and several cortical screws were placed. The majority this screws were now locked with a locking cap. Bone-holding clamp was now removed. Rigid fixation was clinically apparent. Multiplane fluoroscopic views were taken verifying persistent maintenance of reduction and excellent fracture fixation position. Once this was verified and osteogen bone stimulator was placed with the created anteromedial on the comminution segment and the generator placed in the more proximal subcutaneous tissues lateral. The wound was now irrigated and closed. Fascia dane was closed with #2 Quill. Deep subcutaneous tissue was closed with #1 Quill. The immediate subtendinous tissue was closed with multiple inverted 20 and 3-0 undyed Vicryl. Skin was then approximated with stainless steel clips. Sterile dressings consisting of operative foam was applied and secured. Leg was then wrapped with Maxwell wraps from just below the knee to the groin. Patient was then transferred from the operating table to hospital bed. Patient was awakened from anesthesia and extubated. Patient was now transferred to the post anesthesia care unit in stable and satisfactory condition. All sponge and needle evidence for counts are correct. No specimens were sent for pathology.
--- NOTE | 2016-07-18 01:07 | Anesthesia Evaluation Post Op ---
Date of Encounter: 07/18/16 Time of Encounter: 01:05 - Vital Signs Vital Signs: Vital Signs/O2 Sat/Glucose, Most Current Temp Pulse Resp BP Pulse Ox 07/18/16 01:02 80 18 147/58 99 07/18/16 00:52 98.8 F 82 16 155/75 99 07/18/16 00:42 84 18 164/77 99 07/18/16 00:32 85 16 177/68 100 07/18/16 00:22 97.8 F 81 16 171/95 97 - Lungs Lungs: Clear Ascult./Percussion - Airway Airway: Non-obstructed - Cardiovascular Regular Rate - Mental Status Mental Status: Confused, Baseline Status - Pain Pain Scale: 0 Pain Scale used: Numeric (1 - 10) - Nausea Vomiting Nausea Vomiting: Not Present - Hydration Hydration: NPO, Gonzales catheter - Discharge PostOp Status: Discharge Patient to home Anes Supervising Prov Stmt: Pt seen/evaluated, VSS and pt has met criteria for discharge to home. - MD Lashonda
[2016-07-18] MEDS ORDERED: Ondansetron 4 MG/2 ML VIAL IVP PRN (01:13)
[2016-07-18] MEDS ORDERED: Ringers Solution, Lactated 1,000 ML IVC SCH (01:13)
[2016-07-18] MEDS ORDERED: Naloxone 0.4 MG/ML INJ IVP PRN (01:13)
[2016-07-18] MEDS ORDERED: Dextrose Gel 15 GM PO PRN ×2 (01:13)
[2016-07-18] MEDS ORDERED: D5% in Water 1,000 ML IV PRN (01:13)
[2016-07-18] MEDS ORDERED: *HR* Dextrose 50 % in Water (Syg) 50 ML SYRINGE IVP PRN (01:13)
[2016-07-18] MEDS ORDERED: *HR* HYDROmorphone (PF) 1 MG/ML SYRINGE IVP PRN (01:13)
[2016-07-18] MEDS: Insulin LISPRO 300 UNITS/3 ML VIAL SQ SCH ×3 (06:09→18:22)
[2016-07-18] MEDS ORDERED: *HR* Enoxaparin 30 MG/0.3 ML SYRINGE SQ SCH (07:00)
[2016-07-18] MEDS: *HR* Enoxaparin 30 MG/0.3 ML SYRINGE SQ SCH ×2 (07:32→18:20)
[2016-07-18] MEDS ORDERED: Aspirin Enteric Coated 325 MG Tablet PO SCH (09:00)
[2016-07-18] MEDS ORDERED: Venlafaxine XR (24 HR) 75 MG CAP.ER.24H PO SCH (09:00)
[2016-07-18] MEDS: levETIRAcetam 250 MG TABLET PO SCH ×2 (09:54→21:41)
--- NOTE | 2016-07-18 09:58 | Internal Med Progress Note ---
Date of Encounter: 07/18/16 Time of Encounter: 09:30 - Assessment and plan (1) Closed right femoral fracture Current Visit: Yes Status: Acute Assessment and plan: Status post open reduction and internal fixation. Continue physical therapy. Patient will most likely need placement to skilled rehabilitation. clerical office worker consulted and will work on this. Qualifiers: Encounter type: initial encounter Femur location: shaft Fracture morphology: comminuted Fracture alignment: nondisplaced Qualified Code(s): S72.354A - Nondisplaced comminuted fracture of shaft of right femur, initial encounter for closed fracture (2) Atrial fibrillation Current Visit: Yes Status: Acute Assessment and plan: Heart rate is elevated today. On metoprolol. Continue to monitor with telemetry and his heart rate does not improve, she may require intravenous medications to control her heart rate. High risk for complications Qualifiers: Atrial fibrillation type: paroxysmal Qualified Code(s): I48.0 - Paroxysmal atrial fibrillation (3) CAD (coronary artery disease) Current Visit: Yes Status: Chronic Assessment and plan: No chest pain. Continue home medications. Qualifiers: Coronary Disease-Associated Artery/Lesion type: [place] artery [place] vs. transplanted heart: [place] heart Associated angina: without angina Qualified Code(s): I25.10 - Atherosclerotic heart disease of [place] coronary artery without angina pectoris (4) DVT prophylaxis Current Visit: Yes Status: Acute Assessment and plan: On Lovenox subcutaneously. (5) Dementia Current Visit: Yes Status: Chronic Assessment and plan: Continue Aricept and Namenda Qualifiers: Dementia type: unspecified type Dementia behavioral disturbance: without behavioral disturbance Qualified Code(s): F03.90 - Unspecified dementia without behavioral disturbance (6) Fall Current Visit: Yes Status: Acute Assessment and plan: Physical therapy. Fall precautions. Qualifiers: Encounter type: initial encounter Qualified Code(s): W19.XXXA - Unspecified fall, initial encounter (7) Hyperglycemia Current Visit: Yes Status: Acute Assessment and plan: Blood sugars remain elevated. On sliding scale insulin. Will check A1c level. (8) Acute lower urinary tract infection Current Visit: Yes Status: Acute Assessment and plan: With cystitis. Urine culture growing gram-negative rods. On ceftriaxone. - Subjective Interval history: Patient with history of underlying dementia. Does not respond to questions. Appears comfortable. Just finished working with physical therapy and was able to sit on side of bed for about 4 minutes. Does not complain of pain. Underwent surgery yesterday for right femoral fracture. - Constitutional Vitals: Temp Pulse Resp BP Pulse Ox 98.8 F 103 16 118/74 99 07/18/16 06:42 07/18/16 06:42 07/18/16 06:42 07/18/16 06:42 07/18/16 06:42 General appearance: Present: A&O X 0, pleasant, no acute distress. Absent: answers questions appropriately - Respiratory Respiratory exam: Present: CTAB. Absent: accessory muscle use, rales, rhonchi, wheezes - Cardiovascular Cardiovascular exam: Present: RRR, +S1, +S2. Absent: diastolic murmur, gallop, rubs, systolic murmur - GI/Abdominal GI/Abdominal exam: Present: normal bowel sounds, soft, no peritoneal signs. Absent: distended, tenderness - Extremities Exam Extremities exam: Present: tenderness (Right leg), warm, radial pulses palpable and symetrical. Absent: calf tenderness, cyanotic, pedal edema - Neurological Exam Neurological exam: Present: alert. Absent: oriented X3, facial droop, speech deficit Internal Medicine: Result - Labs CBC & Chem 7: 07/17/16 04:38 07/17/16 04:38 - Impressions Impressions Femur X-Ray 07/17/16 20:37 IMPRESSION: Intraprocedural fluoroscopic spot images as above. See separate procedure report for more information. D/ / Markie Owusu MD / Markie Owusu MD Interpreting Provider: Markie Owusu MD Fluoroscopy 07/17/16 20:37 IMPRESSION: Intraprocedural fluoroscopic spot images as above. See separate procedure report for more information. D/ / Markie Owusu MD / Markie Owusu MD Interpreting Provider: Markie Owusu MD - VTE Documentation of Mechanical Device: Venous foot pump, device Consult Discharge Plan - Plan Referrals: NO,PCP [Non-Partnered Physician] - - Attending Attestation This document has been at least partially created by [employer] recognition technology by Dr. Liriano. Errors in grammar, wording or other phrases may exist. If errors are found after the documentation is signed, they will be addressed individually in the addendum section of this document when appropriate.
[2016-07-18] MEDS: *HR* HYDROcodone/Acet 5/325 mg TABLET PO PRN ×2 (10:04→15:14)
[2016-07-18] MEDS: Cholecalciferol (D-3) 1,000 UNIT TABLET PO SCH (10:05)
--- NOTE | 2016-07-18 16:49 | Orthopedics Progress Note ---
Date of Encounter: 07/18/16 Time of Encounter: 16:45 Subjective Principal diagnosis: Periprosthetic fracture right femur Interval history: 07/18/2016. POD #1 ORIF complex periprosthetic fracture right femur. Patient is not talkative. She does have significant history for dementia. Does not appear to be in much pain at this time. Vital signs are stable, patient is afebrile. Dressings are dry without any signs of drainage. Distal neurosensory exam appears to be grossly intact. Hemoglobin is down to 9.7. Urine is growing gram-negative rods, final ID pending. Impression: POD #1 ORIF right periprosthetic femur fracture, orthopedic status stable Recommendation: Discussed with the family and her surgery again at length. I would routinely have patient begin some limited touchdown weightbearing though the patient is not able to comprehend and comply with the limitations therefore she should not need to be strict nonweightbearing. We will maintain the compression dressing on the leg. Recheck CBC in a.m. Awaiting final urine culture results to fine-tune antibiotics. Orthopedic status is stable for discharge to [facility] facility when appropriate per medical service. Objective Vital signs: Vital Signs Temp Pulse Resp BP Pulse Ox 07/18/16 16:01 98.6 F 92 20 137/78 94 L 07/18/16 15:12 97.9 F 83 22 150/67 92 L 07/18/16 14:35 96 07/18/16 13:03 89 22 131/65 100 07/18/16 11:06 97.5 F L 89 22 131/65 100 07/18/16 06:42 98.8 F 103 16 118/74 99 07/18/16 03:03 97.7 F 85 15 137/63 100 07/18/16 02:20 97.7 F 85 16 141/73 100 07/18/16 02:00 97.9 F 84 16 144/78 100 07/18/16 01:34 97.9 F 90 17 140/83 98 07/18/16 01:02 80 18 147/58 99 07/18/16 00:52 98.8 F 82 16 155/75 99 07/18/16 00:42 84 18 164/77 99 07/18/16 00:32 85 16 177/68 100 07/18/16 00:22 97.8 F 81 16 171/95 97 Intake and Output 07/18/16 07/18/16 07/18/16 07:59 15:59 23:59 Intake Total 100 / 100 Output Total 475 / 475 Balance -475 / -475 100 / 100 Intake: IV Fluids 100 / 100 Rocephin 1,000 MG In 100 / 100 Dextrose 5% (Minibag+) 100 ML 100 ML @ 200 mls/ hr IVPB Q24H [facility] Rx#: [id number] Output: Estimated Blood Loss 400 / 400 Urine Amount (Catheter) 75 / 75 Other: Blood Glucose* 184 184 - Labs CBC & BMP: 07/17/16 04:38 07/17/16 04:38 Labs: Abnormal lab results RBC 3.30 M/mcL (3.82-4.97) L 07/17/16 04:38 Hgb 9.7 g/dL (11.5-15.4) L D 07/17/16 04:38 Hct 29.0 % (35.3-44.9) L 07/17/16 04:38 BUN 22 mg/dL (7-20) H 07/17/16 04:38 Est GFR (Non-Af Amer) 58 (> 60) L 07/17/16 04:38 Glucose 140 mg/dL (70-99) H 07/17/16 04:38 POC Glucose 184 (58-89) H 07/18/16 05:29 Ur Specific [place] >= 1.030 (1.010-1.025) H 07/16/16 01:00 Urine Protein 30 mg/dL (Neg-Trace) H 07/16/16 01:00 Urine Blood Small (Negative) H 07/16/16 01:00 Urine Nitrite Positive (Negative) A 07/16/16 01:00 Ur Leukocyte Esterase Trace (Negative) H 07/16/16 01:00 Urine Microscopic RBC 5-15 per hpf (0-3) H 07/16/16 01:00 Urine Microscopic WBC 15-30 per hpf (0-3) H 07/16/16 01:00 Ur Squamous Epith Cells Many per lpf (None-Few) H 07/16/16 01:00 Urine Bacteria Many per hpf (None-Few) H 07/16/16 01:00 - VTE Documentation of Mechanical Device: Venous foot pump, device Consult Discharge Plan - Plan Referrals: Itzel Street MD [Primary Care Provider] - 08/14/16 1:50 pm NO,PCP [Non-Partnered Physician] -
[2016-07-19] MEDS: *HR* HYDROcodone/Acet 5/325 mg TABLET PO PRN ×2 (00:32→21:58)
[2016-07-19] MEDS: Insulin LISPRO 300 UNITS/3 ML VIAL SQ SCH ×4 (01:45→19:19)
[2016-07-19 06:45] LABS: Hemoglobin A1C 4.9 %
[2016-07-19 06:55] LABS: BUN/Creatinine Ratio 32 (6-26); Blood Urea Nitrogen 32 mg/dL (7-20); Calcium 9.7 mg/dL (8.6-10.8); Carbon Dioxide 22 mEq/L (19-29); Chloride 108 mEq/L (98-109); Glucose 125 mg/dL (70-99); Osmolality,Calculated 296 (280-300); Potassium 4.7 mEq/L (3.5-4.5); Sodium 139 mEq/L (136-145); eGFR For African Americans > 60 (> 60); eGFR For Non-African Americans 53 (> 60)
[2016-07-19] MEDS: Cholecalciferol (D-3) 1,000 UNIT TABLET PO SCH (08:03)
[2016-07-19] MEDS: levETIRAcetam 250 MG TABLET PO SCH ×2 (08:04→21:29)
[2016-07-19] MEDS: Aspirin 325 MG TABLET PO SCH (08:04)
[2016-07-19 08:20] LABS: Hematocrit 18.2 % (35.3-44.9); Mean Corpuscular HGB Conc 32.4 g/dL (31.6-35.5); Mean Corpuscular Hemoglobin 29.2 pg (28.0-33.3); Mean Corpuscular Volume 90.1 fL (83.0-100.0); Mean Platelet Volume 10.5 fL (9.4-12.4); Nucleated Red Blood Cells 1.1 /100 WBC (0); Platelet Count 237 K/mcL (140-400); Red Blood Count 2.02 M/mcL (3.82-4.97); Red Cell Distribution Width 13.8 % (11.5-14.5)
[2016-07-19 08:22] LABS: Hemoglobin 5.9 g/dL (11.5-15.4)
--- NOTE | 2016-07-19 09:00 | Internal Med Progress Note ---
Date of Encounter: 07/19/16 Time of Encounter: 08:40 - Assessment and plan (1) Closed right femoral fracture Current Visit: Yes Status: Acute Assessment and plan: Status post open reduction and internal fixation. Continue current management. Pain control. Physical therapy. hoe worker consulted. Qualifiers: Encounter type: initial encounter Femur location: shaft Fracture morphology: comminuted Fracture alignment: nondisplaced Qualified Code(s): S72.354A - Nondisplaced comminuted fracture of shaft of right femur, initial encounter for closed fracture (2) Atrial fibrillation Current Visit: Yes Status: Chronic Assessment and plan: Rate controlled. On aspirin for anticoagulation. Qualifiers: Atrial fibrillation type: paroxysmal Qualified Code(s): I48.0 - Paroxysmal atrial fibrillation (3) CAD (coronary artery disease) Current Visit: Yes Status: Chronic Assessment and plan: Continue aspirin, statin and beta nuzhat Qualifiers: Coronary Disease-Associated Artery/Lesion type: [place] artery [place] vs. transplanted heart: [place] heart Associated angina: without angina Qualified Code(s): I25.10 - Atherosclerotic heart disease of [place] coronary artery without angina pectoris (4) DVT prophylaxis Current Visit: Yes Status: Acute Assessment and plan: Hold Lovenox today because of severe anemia (5) Dementia Current Visit: Yes Status: Chronic Assessment and plan: On Aricept and Namenda Qualifiers: Dementia type: unspecified type Dementia behavioral disturbance: without behavioral disturbance Qualified Code(s): F03.90 - Unspecified dementia without behavioral disturbance (6) Fall Current Visit: Yes Status: Acute Qualifiers: Encounter type: initial encounter Qualified Code(s): W19.XXXA - Unspecified fall, initial encounter (7) Hyperglycemia Current Visit: Yes Status: Acute Assessment and plan: A1c is 4.9%. Patient does not appear to be having diabetes. Will stop before meals at bedtime Accu-Cheks. (8) Acute lower urinary tract infection Current Visit: Yes Status: Acute Assessment and plan: With Escherichia coli. Pansensitive. Patient is on Rocephin (9) Acute blood loss as cause of postoperative anemia Current Visit: Yes Status: Acute Assessment and plan: Hemoglobin 5.9 today. No other sources of bleeding. We will transfuse 2 units of packed red blood cells. Continue to monitor blood counts closely. Patient at high risk for complications. - Subjective Interval history: The patient appears comfortable. Sitting up in chair. Eating breakfast. Patient's daughter is at bedside and is provided history today as patient has history of dementia. Patient has been having pain mostly when she is being moved. Otherwise appears to be well controlled. Reports no melena or hematochezia. - Constitutional Vitals: Temp Pulse Resp BP Pulse Ox 98.0 F 92 16 120/70 93 L 07/19/16 06:48 07/19/16 06:48 07/19/16 06:48 07/19/16 06:48 07/19/16 06:48 General appearance: Present: A&O X 0, pleasant, no acute distress. Absent: answers questions appropriately - Respiratory Respiratory exam: Present: CTAB. Absent: accessory muscle use, rales, rhonchi, wheezes - Cardiovascular Cardiovascular exam: Present: irregular rhythm, +S1, +S2. Absent: diastolic murmur, gallop, rubs, systolic murmur - GI/Abdominal GI/Abdominal exam: Present: normal bowel sounds, soft, no peritoneal signs. Absent: distended, tenderness - Extremities Exam Extremities exam: Present: pedal edema, warm, radial pulses palpable and symetrical. Absent: calf tenderness, cyanotic - Neurological Exam Neurological exam: Present: CN II-XII intact, no focal deficits. Absent: facial droop, speech deficit Internal Medicine: Result - Labs CBC & Chem 7: 07/19/16 07:05 07/19/16 06:21 Labs: Short CBC 07/19/16 Range/Units 07:05 WBC 10.2 (4.3-11.1) K/mcL Hgb 5.9 L* D (11.5-15.4) g/dL Hct 18.2 L (35.3-44.9) % Plt Count 237 (140-400) K/mcL BMP 07/19/16 06:21 Sodium 139 Potassium 4.7 H Chloride 108 Carbon Dioxide 22 BUN 32 H D Creatinine 0.99 Glucose 125 H Calcium 9.7 - VTE Documentation of Mechanical Device: Venous foot pump, device Consult Discharge Plan - Plan Referrals: Itzel Street MD [Primary Care Provider] - 08/14/16 1:50 pm NO,PCP [Non-Partnered Physician] - - Attending Attestation This document has been at least partially created by [employer] recognition technology by Dr. Ameda. Errors in grammar, wording or other phrases may exist. If errors are found after the documentation is signed, they will be addressed individually in the addendum section of this document when appropriate.
[2016-07-19 09:45] LABS: Lymphocytes # 0.8 K/mcL (0.6-4.6); Neutrophils # 8.4 K/mcL (1.6-8.9)
[2016-07-19 09:46] LABS: Platelet Estimate Normal (Normal); Polychromasia 1+ (Not Present)
[2016-07-19 09:47] LABS: Basophilic Stippling 1+ (Not Present)
[2016-07-19] MEDS ORDERED: 0.9 % Sodium Chloride 250 ML ONE ×2 (11:56→16:03)
[2016-07-19] MEDS ORDERED: Furosemide 20 MG/2 ML VIAL IVP ONE (15:07)
--- NOTE | 2016-07-19 19:58 | Orthopedics Progress Note ---
Date of Encounter: 07/19/16 Time of Encounter: 19:53 Subjective Principal diagnosis: Periprosthetic fracture right femur Interval history: 07/18/2016. POD #1 ORIF complex periprosthetic fracture right femur. Patient is not talkative. She does have significant history for dementia. Does not appear to be in much pain at this time. Vital signs are stable, patient is afebrile. Dressings are dry without any signs of drainage. Distal neurosensory exam appears to be grossly intact. Hemoglobin is down to 9.7. Urine is growing gram-negative rods, final ID pending. Impression: POD #1 ORIF right periprosthetic femur fracture, orthopedic status stable Recommendation: Discussed with the family and her surgery again at length. I would routinely have patient begin some limited touchdown weightbearing though the patient is not able to comprehend and comply with the limitations therefore she should not need to be strict nonweightbearing. We will maintain the compression dressing on the leg. Recheck CBC in a.m. Awaiting final urine culture results to fine-tune antibiotics. Orthopedic status is stable for discharge to longterm facility when appropriate per medical service. 07/19/2016. Postop day #2 ORIF right femur. Patient is comfortable. No obvious pain. Vital signs are stable. Patient remains afebrile. Dressings dry. Patient has a significant drop in hemoglobin from 9.7 to 5. 9/24 hours. Platelet count remained stable. Kidney function remains relatively stable as well. Culture has grown Escherichia coli. Fashion: POD #2 ORIF right periprosthetic femur fracture, acute postoperative blood loss anemia Recommendation: Transfuse per internal medicine service. Anticipate blood loss from massive fracture. Overall orthopedic status remains stable. Objective Vital signs: Vital Signs Temp Pulse Resp BP Pulse Ox 07/19/16 19:08 98.3 F 93 15 126/88 95 07/19/16 16:21 98.4 F 81 15 125/66 95 07/19/16 16:06 98.3 F 83 15 143/81 95 07/19/16 14:42 98.2 F 67 12 121/58 93 L 07/19/16 12:20 97.4 F L 62 16 125/63 07/19/16 12:05 97.4 F L 63 17 120/62 97 07/19/16 10:54 55 16 131/62 94 L 07/19/16 06:48 98.0 F 92 16 120/70 93 L 07/19/16 04:00 98.2 F 72 15 120/66 96 07/19/16 01:31 98.1 F 81 15 132/84 97 07/18/16 21:54 99.6 F 97 15 126/76 92 L Intake and Output 07/19/16 07/19/16 07/19/16 07:59 15:59 23:59 Intake Total 450 / 450 470 / 470 Output Total 50 / 50 Balance -50 / -50 450 / 450 470 / 470 Intake: IV Fluids 100 / 100 Rocephin 1,000 MG In 100 / 100 Dextrose 5% (Minibag+) 100 ML 100 ML @ 200 mls/ hr IVPB Q24H [facility] Rx#: [id number] Oral 120 / 120 Blood Product 350 / 350 350 / 350 Rbcs Leuko Poor As-1 350 / 350 Unit [id number] Rbcs Leuko Poor As-1 350 / 350 Unit [id number] Output: Catheter 50 / 50 Other: Meal Dinner Percent of Meal Consumed 50% # Voids 2 Blood Glucose* 143 116 - Labs CBC & BMP: 07/19/16 07:05 07/19/16 06:21 Labs: Abnormal lab results RBC 2.02 M/mcL (3.82-4.97) L 07/19/16 07:05 Hgb 5.9 g/dL (11.5-15.4) L* D 07/19/16 07:05 Hct 18.2 % (35.3-44.9) L 07/19/16 07:05 Band Neutrophils % 6.0 % (0-4) H 07/19/16 07:05 Nucleated RBCs/100 WBC 1.1 /100 WBC (0) H 07/19/16 07:05 Polychromasia 1+ (Not Present) A 07/19/16 07:05 Basophilic Stippling 1+ (Not Present) A 07/19/16 07:05 Potassium 4.7 mEq/L (3.5-4.5) H 07/19/16 06:21 BUN 32 mg/dL (7-20) H D 07/19/16 06:21 Est GFR (Non-Af Amer) 53 (> 60) L 07/19/16 06:21 BUN/Creatinine Ratio 32 (6-26) H 07/19/16 06:21 Glucose 125 mg/dL (70-99) H 07/19/16 06:21 POC Glucose 116 (58-89) H 07/19/16 12:13 Ur Specific [place] >= 1.030 (1.010-1.025) H 07/16/16 01:00 Urine Protein 30 mg/dL (Neg-Trace) H 07/16/16 01:00 Urine Blood Small (Negative) H 07/16/16 01:00 Urine Nitrite Positive (Negative) A 07/16/16 01:00 Ur Leukocyte Esterase Trace (Negative) H 07/16/16 01:00 Urine Microscopic RBC 5-15 per hpf (0-3) H 07/16/16 01:00 Urine Microscopic WBC 15-30 per hpf (0-3) H 07/16/16 01:00 Ur Squamous Epith Cells Many per lpf (None-Few) H 07/16/16 01:00 Urine Bacteria Many per hpf (None-Few) H 07/16/16 01:00 - VTE Documentation of Mechanical Device: Venous foot pump, device Consult Discharge Plan - Plan Referrals: Itzel Street MD [Primary Care Provider] - 08/14/16 1:50 pm NO,PCP [Non-Partnered Physician] -
[2016-07-19 22:33] LABS: Hemoglobin 9.8 g/dL (11.5-15.4)
[2016-07-20] MEDS: Insulin LISPRO 300 UNITS/3 ML VIAL SQ SCH ×2 (00:25→05:44)
[2016-07-20 06:32] LABS: Basophils % 0.5 %; Eosinophils % 0.2 %; Hematocrit 28.5 % (35.3-44.9); Hemoglobin 9.6 g/dL (11.5-15.4); Immature Granulocytes % 2.2 % (0-4); Lymphocytes # 1.4 K/mcL (0.6-4.6); Lymphocytes % 15.4 %; Mean Corpuscular HGB Conc 33.7 g/dL (31.6-35.5); Mean Corpuscular Hemoglobin 29.3 pg (28.0-33.3); Mean Corpuscular Volume 86.9 fL (83.0-100.0); Mean Platelet Volume 9.9 fL (9.4-12.4); Monocytes # 0.8 K/mcL (0.0-1.3); Neutrophils # 6.4 K/mcL (1.6-8.9); Nucleated Red Blood Cells 1.6 /100 WBC (0); Platelet Count 208 K/mcL (140-400); Red Blood Count 3.28 M/mcL (3.82-4.97); Segmented Neutrophils % 72.7 %
[2016-07-20 06:47] LABS: BUN/Creatinine Ratio 43 (6-26); Blood Urea Nitrogen 36 mg/dL (7-20); Calcium 9.8 mg/dL (8.6-10.8); Carbon Dioxide 23 mEq/L (19-29); Chloride 103 mEq/L (98-109); Glucose 120 mg/dL (70-99); Osmolality,Calculated 292 (280-300); Potassium 4.3 mEq/L (3.5-4.5); Sodium 136 mEq/L (136-145); eGFR For African Americans > 60 (> 60); eGFR For Non-African Americans > 60 (> 60)
[2016-07-20 06:53] VITALS: BP 143/73
[2016-07-20] MEDS: *HR* Enoxaparin 30 MG/0.3 ML SYRINGE SQ SCH ×2 (08:09→08:11)
[2016-07-20] MEDS: Cholecalciferol (D-3) 1,000 UNIT TABLET PO SCH (08:10)
[2016-07-20] MEDS: levETIRAcetam 250 MG TABLET PO SCH (08:10)
[2016-07-20] MEDS: Aspirin 325 MG TABLET PO SCH (08:10)
[2016-07-20] MEDS: *HR* HYDROcodone/Acet 5/325 mg TABLET PO PRN (10:25)
--- NOTE | 2016-07-20 10:48 | Discharge Summary ---
Date of Encounter: 07/20/16 Time of Encounter: 10:20 - Discharge Diagnosis (1) Closed right femoral fracture Priority: Primary Status: Acute Qualifiers: Encounter type: initial encounter Femur location: shaft Fracture morphology: comminuted Fracture alignment: nondisplaced Qualified Code(s): S72.354A - Nondisplaced comminuted fracture of shaft of right femur, initial encounter for closed fracture (2) Atrial fibrillation Priority: Secondary Status: Chronic Qualifiers: Atrial fibrillation type: paroxysmal Qualified Code(s): I48.0 - Paroxysmal atrial fibrillation (3) CAD (coronary artery disease) Priority: Secondary Status: Chronic Qualifiers: Coronary Disease-Associated Artery/Lesion type: [place] artery [place] vs. transplanted heart: [place] heart Associated angina: without angina Qualified Code(s): I25.10 - Atherosclerotic heart disease of [place] coronary artery without angina pectoris (4) DVT prophylaxis Priority: Secondary Status: Acute (5) Dementia Priority: Secondary Status: Chronic Qualifiers: Dementia type: unspecified type Dementia behavioral disturbance: without behavioral disturbance Qualified Code(s): F03.90 - Unspecified dementia without behavioral disturbance (6) Fall Priority: Secondary Status: Acute Qualifiers: Encounter type: initial encounter Qualified Code(s): W19.XXXA - Unspecified fall, initial encounter (7) Hyperglycemia Priority: Secondary Status: Acute (8) Acute lower urinary tract infection Priority: Secondary Status: Acute (9) Acute blood loss as cause of postoperative anemia Priority: Secondary Status: Acute - Discharge Medications Prescriptions: HYDROcodone/Acet 5/325 mg [[place] 5-325 mg] 1 tab PO Q4HR PRN #14 tablet PRN Reason: Moderate Pain (4-6) Cephalexin [Keflex] 500 mg PO BID #10 capsule Home Medications: Cholecalciferol (Vitamin D3) [Vitamin D3] 4,000 unit PO DAILY 08/12/15 [History] Donepezil [Aricept] 10 mg PO HS 08/12/15 [History] LevETIRAcetam [Keppra] 500 mg PO BID 08/12/15 [History] Lisinopril [Zestril] 20 mg PO DAILY 08/12/15 [History] Memantine [Namenda] 10 mg PO BID 08/12/15 [History] Metoprolol [Lopressor] 50 mg PO BID 02/25/16 [History] Simvastatin [Zocor] 20 mg PO DAILY 08/12/15 [History] Venlafaxine [Effexor] 75 mg PO DAILY 08/12/15 [History] Aspirin 325 mg PO BID tablet 07/20/16 [Rx] Bisacodyl [Dulcolax] 5 mg PO DAILY PRN #0 tablet 07/20/16 [Rx] Cephalexin [Keflex] 500 mg PO BID #10 capsule 07/20/16 [Rx] Docusate [Colace] 100 mg PO BID PRN #0 capsule 07/20/16 [Rx] HYDROcodone/Acet 5/325 mg [[place] 5-325 mg] 1 tab PO Q4HR PRN #14 tablet [Rx] Allergies/Adverse Reactions: Allergies piroxicam [From Feldene] Adverse Reaction (Verified 08/12/15 11:17) Rash povidone-iodine [From Betadine] Adverse Reaction (Verified 08/12/15 10:49) Rash soap [From Betadine] Adverse Reaction (Verified 08/12/15 10:49) Rash Date of admission: 07/15/16 23:45 Primary care physician: Itzel Street MD Consults: 07/15/16 22:27 Consult to Orthopedic Surgery [CONS] Stat Consulting Provider: Fady Barajas Reason for Consult: femur fx Time Notified: 22:00 Call Completed: Yes 07/15/16 23:48 Consult to Occupational Therapy [CONS] Routine Comment: Evaluate, develop and implement POC Consult to Physical Therapy [CONS] Routine Comment: Evaluate, develop and implement POC Consult to Heel Varnisher [CONS] Routine Reason for SW Consult: 86F with dementia and Femur fracture, likely needs SNF on discharge Discharging clinician: Amanda Liriano Anticipated date of discharge: 07/20/16 - Patient Status Disposition: Transfer SNF Condition: Fair Functional capacity at discharge: wheelchair bound Overall status at discharge: patient is progressing back to baseline - Discharge Instructions Instructions: Urinary Tract Infection in Women (DC) Follow Up With: Fady Barajas DO [Non-Partnered Physician] - 08/02/16 9:[address] MD [Primary Care Provider] - 08/14/16 1:50 pm - Diet and Activity Activity: as per physical therapy Diet: low fat, low cholesterol, low salt diet Hospital course: Ms. Campbell is a 86 year old female with history of atrial fibrillation, coronary artery disease and dementia was admitted here with a closed right femoral fracture after fall. She underwent open reduction and internal fixation of fracture. Since then she has been receiving physical therapy and recovering well. She did develop postoperative anemia and required blood transfusion. She received 2 units of packed red blood cells. Her hemoglobin levels have been stable since then. She is now stable for discharge and will be discharged to skilled rehabilitation once bed is available for her. She was also treated for an acute UTI and will complete treatment with Keflex. Her blood sugars were elevated initially most likely due to use of decadron. A1c was normal. This has now resolved - Time Spent with Patient Total time spent providing and/or coordinating discharge services: Greater than 30 minutes (40 min) - Constitutional Vitals: Temp Pulse Resp BP Pulse Ox 98.0 F 77 16 143/73 97 07/20/16 06:50 07/20/16 06:50 07/20/16 06:50 07/20/16 06:50 07/20/16 06:50 General appearance: Present: A&O X 0, pleasant, no acute distress. Absent: answers questions appropriately - Respiratory Respiratory exam: Present: CTAB. Absent: accessory muscle use, rales, rhonchi, wheezes - Cardiovascular Cardiovascular exam: Present: irregular rhythm, +S1, +S2. Absent: diastolic murmur, gallop, rubs, systolic murmur - Extremities Exam Extremities exam: Present: pedal edema ( mild right lower extremmity), warm, radial pulses palpable and symetrical. Absent: calf tenderness, cyanotic - VTE Documentation of Mechanical Device: Venous foot pump, device - Attending Attestation This document has been at least partially created by [employer] recognition technology by Dr. Lirinao. Errors in grammar, wording or other phrases may exist. If errors are found after the documentation is signed, they will be addressed individually in the addendum section of this document when appropriate.
--- NOTE | 2016-07-20 10:54 | Physician Discharge Referral ---
ExtendedCare Referral Info Provider in Charge after Transfer: PCP Institutional Level of Care: Skilled - Diagnosis (1) Closed right femoral fracture Priority: Primary Status: Acute (2) Atrial fibrillation Priority: Secondary Status: Chronic (3) CAD (coronary artery disease) Priority: Secondary Status: Chronic (4) DVT prophylaxis Priority: Secondary Status: Acute (5) Dementia Priority: Secondary Status: Chronic (6) Fall Priority: Secondary Status: Acute (7) Hyperglycemia Priority: Secondary Status: Acute (8) Acute lower urinary tract infection Priority: Secondary Status: Acute (9) Acute blood loss as cause of postoperative anemia Priority: Secondary Status: Acute Prognosis: Fair Aware of Diagnosis: Family Aware of Prognosis: Family - Transfer Medications Prescriptions: HYDROcodone/Acet 5/325 mg [[place] 5-325 mg] 1 tab PO Q4HR PRN #14 tablet PRN Reason: Moderate Pain (4-6) Cephalexin [Keflex] 500 mg PO BID #10 capsule Home Medications: Cholecalciferol (Vitamin D3) [Vitamin D3] 4,000 unit PO DAILY 08/12/15 [History] Donepezil [Aricept] 10 mg PO HS 08/12/15 [History] LevETIRAcetam [Keppra] 500 mg PO BID 08/12/15 [History] Lisinopril [Zestril] 20 mg PO DAILY 08/12/15 [History] Memantine [Namenda] 10 mg PO BID 08/12/15 [History] Metoprolol [Lopressor] 50 mg PO BID 08/12/15 [History] Simvastatin [Zocor] 20 mg PO DAILY 08/12/15 [History] Venlafaxine [Effexor] 75 mg PO DAILY 08/12/15 [History] Aspirin 325 mg PO BID tablet 07/20/16 [Rx] Bisacodyl [Dulcolax] 5 mg PO DAILY PRN #0 tablet 07/20/16 [Rx] Cephalexin [Keflex] 500 mg PO BID #10 capsule 07/20/16 [Rx] Docusate [Colace] 100 mg PO BID PRN #0 capsule 07/20/16 [Rx] HYDROcodone/Acet 5/325 mg [[place] 5-325 mg] 1 tab PO Q4HR PRN #14 tablet [Rx] Allergies/Adverse Reactions: Allergies piroxicam [From Feldene] Adverse Reaction (Verified 08/12/15 11:17) Rash povidone-iodine [From Betadine] Adverse Reaction (Verified 08/12/15 10:49) Rash soap [From Betadine] Adverse Reaction (Verified 08/12/15 10:49) Rash - Respiratory Orders Smoking Cessation: Smoking cessation has been advised. For more information, call the [place] Tobacco Quit Line at 6-443-PYRK-NOW. - Ancillary Orders May use pressure relief devices daily prn - Advance Directives Code Status: DNR-Arrest (DNR CC arrest) - Mobility Orders Ambulate (per PT) - Rehabiliation Orders Rehab Orders: Evaluation for Physical Therapy, Evaluation for Occupational Therapy - Diet Orders Cardiac CERTIFICATION: I certify that the transfer of the above named patient to an Extended Care Facility is necessary for the continuing treatment of the diagnosis listed. The above information is true and accurate reflection of patient's current condition. Confidential - Redisclosure prohibited without a patient's written consent.
== END 2016-07-20 12:04 | DRG 481 ==
LOC: 3NENU 21:02 → EMEROO 21:02 → 3NENU 22:50 → SUATTDRO 23:45
PROVIDERS: ADMIT Internal Medicine; ATTEND Internal Medicine